=== PATIENT | female | born 1965 ===

== ENCOUNTER 2023-05-22 12:27 | Emergency (ER) | payer OTHER, BC ==
[2023-05-22] MEDS ORDERED: Lidocaine 1% 5 ML VIAL INJECT ONE (12:52)
[2023-05-22] MEDS ORDERED: Bacitracin Oint 1 GM U/D Packet TOP ONE (13:24)
== END 2023-05-22 13:53 | disposition home or self-care (01) ==
LOC: LL.ED 12:27
DX: S01.01XA Laceration without foreign body of scalp, initial encounter (principal); Z91.011 Allergy to milk products; W22.09XA Striking against other stationary object, initial encounter
CPT/HCPCS: 12002; 99282; 99283; J3490

== ENCOUNTER 2023-07-25 08:01 | Emergency (ER) | payer OTHER, BC ==
[2023-07-25] MEDS: Lidocaine 1% 5 ML VIAL INJECT ONE (08:47)
[2023-07-25] MEDS: Bacitracin Oint 1 GM U/D Packet TOP ONE (09:44)
== END 2023-07-25 09:45 | disposition home or self-care (01) ==
LOC: LL.ED 08:01
DX: S61.411A Laceration without foreign body of right hand, initial encounter (principal); Z91.011 Allergy to milk products; Z79.899 Other long term (current) drug therapy
CPT/HCPCS: 12001; 99282; J3490